=== PATIENT | male | born 1985 | race African-American/Black ===

== ENCOUNTER 2016-10-29 11:36 | Emergency (ER) | payer SELFPAY ==
[~2016-10-29] VITALS: Ht 172.7 cm; Wt 117.9 kg
[2016-10-29] MEDS ORDERED: TETANUS-DIPTH-ACEL PERTUSSIS 0.5ML SYRG IM ONE (12:00)
[2016-10-29 13:00] VITALS: BP 142/86
== END 2016-10-29 13:36 | disposition home or self-care (01) ==
LOC: ER 11:36
DX: S01.01XA Laceration without foreign body of scalp, initial encounter (principal); Y08.89XA Assault by other specified means, initial encounter; Y93.89 Activity, other specified; Y99.8 Other external cause status; Y92.89 Other specified places as the place of occurrence of the external cause
CPT/HCPCS: 12004; 70450